=== PATIENT | female | born 1945 | race Caucasian/White ===

== ENCOUNTER 2021-05-26 13:36 | Emergency (ER) | payer MEDICARE, BC ==
[~2021-05-26] VITALS: Ht 154.9 cm; Wt 49.8 kg
--- OUTSIDE RECORDS SUMMARY | 2021-05-26 13:41 | XMS REPORT | Clinical Summary ---
Author Author [facility] Organization [facility] Address Unknown Phone Unavailable Care Team Providers Care Field Training Manager Name Role Phone Onesimo Platt MD Unavailable Unavailable Reinaldo Cobb MD PCP Javier Jeter MD 21 Source Comments Some departments are not documenting in the electronic medical record. If you d o not see the information that you expected, contact Release of Information in [facility] Information Management department at [phone] for further assistan ce in locating additional records.[facility] Allergies No Known Active Allergies Medications End Date Status Medication Sig Dispensed Refills Start Date Active amLODIPine (NORVASC) 10 Take 10 mg by 0 mg tablet mouth daily. Active olmesartan(+) (BENICAR) Take 20 mg by 0 20 mg tablet mouth daily. Active simvastatin (ZOCOR) 20 mg Take 20 mg by 0 tablet mouth at bedtime daily. Active levETIRAcetam (KEPPRA) Take one 30 tablet 11 750 mg tabletIndications: tablet by 9 partial epilepsy mouth at treatment adjunct, Take bedtime one tablet at bedtime daily. Indications: Additional Medication to Treat Partial Seizures, Take one tablet at bedtime Active FOLIC ACID PO Take by 0 mouth. Active levETIRAcetam (KEPPRA) TAKE 1 TABLET 90 tablet 3 0 500 mg tablet EVERY 1 MORNINGFOR ADDITIONAL MEDICATION TO TREAT PARTIAL SEIZURES Active Problems Problem Noted Date Cataract 07/13/2019 Vasogenic cerebral edema 10/15/2016 Compression of brain 10/15/2016 Meningioma 10/15/2016 Right-sided nontraumatic intracerebral hemorrhage HTN (hypertension) HLD (hyperlipidemia) Smoker Surgical History Surgery Date Site/Laterality Comments HYSTERECTOMY LITHOTRIPSY CRANIOTOMY right Right meningioma rese ction pterional craniotomy CRANIOTOMY 10/16/2016 Right RIGHT TEMPORAL CRANIOTOMY FOR RESECTION OF BRAIN TUMOR performed by Ángel Cline MD at [facility] Medical devices from this surgery are i n the Implants section. Medical History Medical History Date Comments HTN (hypertension) Pulmonary hypertension (HCC) per echo HLD (hyperlipidemia) Smoker Hypercholesteremia Meningioma (HCC) Family History Medical History Relation Name Comments SLE Daughter Glaucoma Father Cataract Mother Hypertension Mother Blindness Neg Hx Cancer Neg Hx Diabetes Neg Hx Macular Degen Neg Hx Retinal Detachment Neg Hx Stroke Neg Hx Thyroid Disease Neg Hx Relation Name Status Comments Daughter Father Mother Social History Date Tobacco Use Types Packs/Day Years Used Quit: 12/27/2018 Current Some Day Smoker Cigarettes Smokeless Tobacco: Current User Comments: 1-2 cigarettes a day Comments Alcohol Use Standard Drinks/Week Yes 0 (1 standard drink = 0.6 o z pure alcohol) Sex Assigned at Date Recorded Female 03/21/2020 12:47 PM CDT Last Filed Vital Signs Reading Time Taken Comments Vital Sign 129/69 03/22/2020 2:08 PM CDT Blood Pressure 87 03/22/2020 2:08 PM CDT Pulse 36.9 C (98.5 F) 03/22/2020 2:08 PM CDT Temperature 16 02/17/2017 10:01 AM CDT Respiratory Rate 87% 03/22/2020 2:08 PM CDT Oxygen Saturation - - Inhaled Oxygen Concentration 45.6 kg (100 lb 9.6 oz) 03/22/2020 2:08 PM CDT Weight 154.9 cm (5' 1") 03/22/2020 2:08 PM CDT Height 19.01 03/22/2020 2:08 PM CDT Body Mass Index Plan of Treatment Health Maintenance Due Date Last Done Comments MEDICARE ANNUAL WELLNESS 1945 VISIT DTAP/TDAP VACCINES (1 - 1962 Tdap) HEPATITIS C SCREENING 1962 PHYSICAL (COMPREHENSIVE) 1962 EXAM SHINGLES RECOMBINANT 1994 VACCINE (1 of 2) OSTEOPOROSIS 2009 SCREENING/MONITORING PNEUMONIA (PPSV23) 2009 VACCINE (1 of 1 - PPSV23) INFLUENZA VACCINE 07/05/2021 07/01/2016, 10/19/2009 Implants Device Identifier Shelf Expiration Date Model / Serial / L ot Implanted Type Area Manufactur er 11/04/2018 106 [id number] / [id number] / [id number] Substitute Tissue 3x3in Lyoplant Right: Cranial AESC ULAP Dura Sodium Hydroxide Onlay NEURO Implanted: Qty: 1 on 10/16/2016 by DIVISION Ángel Cline MD at [facility] [id number] / [id number] / [id number] Mesh Cranial .6mm Large Temporal Right: Cranial UNID ENTIFI Titanium Latex Free ED MFG Implanted: Qty: 1 on 10/16/2016 by Ángel Cline MD at [facility] [id number] / [id number] / [id number] Plate Bone 1.5mm Square Cranial Right: Cranial KLS M BASILIO Titanium 2x2 Hole Low CMF Implanted: Qty: 1 on 10/16/2016 by IMPLANTS Ángel lCine MD at [facility] [id number] / [id number] / [id number] Cover Aung Hole L17mm Od3mm Right: Cranial KLS JUN N Implanted: Qty: 1 on 10/16/2016 by CMÁngel Flores MD at [facility] [id number] / [id number] / [id number] Plate Bone .6mm Curve Cranial Right: Cranial KLS MAR TIN Titanium 5x2 Hole Low Profile CMF Implanted: Qty: 1 on 10/16/2016 by IMPLANTS Ángel Cline MD at [facility] [id number] / [id number] / [id number] Screw Neuro 1.5x4mm Drill Free Right: Cranial KLS MA RTIN Implanted: Qty: 15 on 10/16/2016 by Ángel Moore MD at [facility] Results Not on filefrom Last 3 Months Insurance Type Payer Benefit Subscriber ID Effective Phone Address Plan / Dates Group Medicare MEDICARE MEDICARE [id number] 2009-P PART A AND resent B PPO BCBS [place] BCBS [place] [id number] 2011- FED EMP Present PROGRAM [id number] Advance Directives Patient Jewel Gauger Explanation Type Date Recorded Advance 10/14/2016 3:01 PM Directive/DPOA Date Inactivated Comments Code Status Date Activated 10/19/2016 4:09 PM Full Code 10/14/2016 2:53 PM Provider has discussed Code Status No, more discussi on w/Patient or Family? needed
--- NOTE | 2021-05-26 13:44 | ED General ---
General Chief Complaint: Altered Mental Status Stated Complaint: AMS; SLURRED SPEECH Source of Information: Patient Exam Limitations: No Limitations History of Present Illness Date Seen by Provider: May 26, 2021 Time Seen by Provider: 13:44 Initial Comments 76-year-old female presents with complaint of several days of feeling "jittery". Also states her thinking has not been clear and she is been forgetful, although aware and still able to think for herself. Denies any recent illness, fever or chills. Denies chest pain, cough or shortness of air. Her daughters are very concerned and say that she is having altered mental status. Also her daughter says that she has been smoking more than usual and drinking more caffeine than usual. Recently started on Aricept by her PCP over the last week so she is only taking it a few days. History of benign brain tumor with resection 2 years ago, taking antiseizure medication since then and followed by neurologist. Allergies and Home Medications Allergies Coded Allergies: No Known Drug Allergies (Unverified , 05/26/21) Patient Home Medication List Home Medication List Reviewed: Yes Review of Systems Review of Systems Constitutional: No chills, No diaphoresis, No fever; malaise ("feeling jittery"); No weakness EENTM: no symptoms reported Respiratory: No cough, No short of breath Cardiovascular: No chest pain, No edema, No palpitations, No syncope, No other Gastrointestinal: No abdominal pain, No nausea, No vomiting Genitourinary: No dysuria, No frequency, No hematuria Musculoskeletal: No back pain, No joint pain, No neck pain Skin: No change in color, No rash Psychiatric/Neurological: Denies Headache, Denies Numbness, Denies Paresthesia, Denies Tingling, Denies Weakness Past Mihkcoz-Dbzlhf-Omjlak Hx Patient Social History Tobacco Use?: Yes Physical Exam Vital Signs Vital Signs - First Documented 05/26/21 13:45 Temp 36.4 Pulse 87 Resp 25 B/P (MAP) 122/57 (78) Pulse Ox 96 O2 Delivery Room Air Capillary Refill : Height, Weight, BMI Height: '" Weight: lbs. oz. 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 as Tested Skin: Normal Color, Warm/Dry Progress/Results/Core Measures Suspected Sepsis SIRS Temperature: Pulse: Respiratory Rate: Laboratory Tests 05/26/21 13:50: White Blood Count 4.8 Blood Pressure / Mean: Laboratory Tests 05/26/21 13:50: Creatinine 0.76, Platelet Count 403H, Total Bilirubin 0.3 Results/Orders Lab Results Laboratory Tests Test 05/26/21 13:46 05/26/21 13:50 Range/Units Urine Color YELLOW Urine Clarity CLEAR Urine pH 6.5 5-9 Urine Specific [place] 1.015 L 1.016-1.022 Urine Protein NEGATIVE NEGATIVE Urine Glucose (UA) NEGATIVE NEGATIVE Urine Ketones NEGATIVE NEGATIVE Urine Nitrite NEGATIVE NEGATIVE Urine Bilirubin 1+ H NEGATIVE Urine Urobilinogen 0.2 < = 1.0 MG/DL Urine Leukocyte Esterase NEGATIVE NEGATIVE Urine RBC (Auto) TRACE-I NEGATIVE Urine RBC 2-5 H /HPF Urine WBC NONE /HPF Urine Squamous Epithelial Cells 2-5 /HPF Urine Crystals NONE /LPF Urine Bacteria TRACE /HPF Urine Casts NONE /LPF Urine Mucus LARGE H /LPF Urine Yeast FEW H /HPF Urine Culture Indicated NO White Blood Count 4.8 4.3-11.0 10^3/uL Red Blood Count 4.45 3.80-5.11 10^6/uL Hemoglobin 12.6 11.5-16.0 g/dL Hematocrit 38 35-52 % Mean Corpuscular Volume 85 80-99 fL Mean Corpuscular Hemoglobin 28 25-34 pg Mean Corpuscular Hemoglobin Concent 34 32-36 g/dL Red Cell Distribution Width 13.9 10.0-14.5 % Platelet Count 403 H 130-400 10^3/uL Mean Platelet Volume 8.3 L 9.0-12.2 fL Immature Granulocyte % (Auto) 0 % Neutrophils (%) (Auto) 67 42-75 % Lymphocytes (%) (Auto) 22 12-44 % Monocytes (%) (Auto) 9 0-12 % Eosinophils (%) (Auto) 1 0-10 % Basophils (%) (Auto) 1 0-10 % Neutrophils # (Auto) 3.2 1.8-7.8 X 10^3 Lymphocytes # (Auto) 1.1 1.0-4.0 X 10^3 Monocytes # (Auto) 0.4 0.0-1.0 X 10^3 Eosinophils # (Auto) 0.0 0.0-0.3 10^3/uL Basophils # (Auto) 0.1 0.0-0.1 10^3/uL Immature Granulocyte # (Auto) 0.0 0.0-0.1 10^3/uL Sodium Level 133 L 135-145 MMOL/L Potassium Level 4.0 3.6-5.0 MMOL/L Chloride Level 96 L 98-107 MMOL/L Carbon Dioxide Level 24 21-32 MMOL/L Anion Gap 13 5-14 MMOL/L Blood Urea Nitrogen 7 7-18 MG/DL Creatinine 0.76 0.60-1.30 MG/DL Estimat Glomerular Filtration Rate 74 BUN/Creatinine Ratio 9 Glucose Level 151 H 70-105 MG/DL Calcium Level 9.4 8.5-10.1 MG/DL Corrected Calcium 8.5-10.1 MG/DL Total Bilirubin 0.3 0.1-1.0 MG/DL Aspartate Amino Transf (AST/SGOT) 21 5-34 U/L Alanine Aminotransferase (ALT/SGPT) 10 0-55 U/L Alkaline Phosphatase 89 40-136 U/L Total Protein 6.8 6.4-8.2 GM/DL Albumin 4.6 H 3.2-4.5 GM/DL My Orders Orders - ANTHONYVENSTINERONALD DO Ed Iv/Invasive Line Start (05/26/21 13:47) Cbc With Automated Diff (05/26/21 13:47) Comprehensive Metabolic Panel (05/26/21 13:47) Urinalysis (05/26/21 13:47) Ct Head Wo (05/26/21 13:52) Vital Signs/I&O 05/26/21 13:45 Temp 36.4 Pulse 87 Resp 25 B/P (MAP) 122/57 (78) Pulse Ox 96 O2 Delivery Room Air Capillary Refill : ECG Initial ECG Impression Date: May 26, 2021 Initial ECG Impression Time: 13:48 Initial ECG Rate: 80 Initial ECG Rhythm: Normal Sinus Initial ECG Intervals: Normal Initial ECG Impression: Normal Departure Impression Primary Impression: Mild dementia Disposition: 01 HOME, SELF-CARE Condition: Stable Departure-Patient Inst. Decision time for Depature: 14:34 Patient Instructions: Dementia ED Add. Discharge Instructions: Follow up with your RAD oncologist this week as planned. See your PCP in 2 weeks regarding how your feeling. Return to the ER for any other significant changes or concerns All discharge instructions reviewed with patient and/or family. Voiced understanding. RONALD CALDERON DO May 26, 2021 13:44
[2021-05-26 13:45] VITALS: BP 122/57
[2021-05-26 13:58] LABS: BASOPHILS # (AUTO) 0.1 10^3/uL (0.0-0.1); BASOPHILS % (AUTO) 1 % (0-10); EOSINOPHILS % (AUTO) 1 % (0-10); HEMATOCRIT 38 % (35-52); HEMOGLOBIN 12.6 g/dL (11.5-16.0); LYMPHOCYTES # (AUTO) 1.1 X 10^3 (1.0-4.0); LYMPHOCYTES % (AUTO) 22 % (12-44); MEAN CORPUSCULAR HEMOGLOBIN 28 pg (25-34); MEAN CORPUSCULAR HGB CONC 34 g/dL (32-36); MEAN CORPUSCULAR VOLUME 85 fL (80-99); MEAN PLATELET VOLUME 8.3 fL (9.0-12.2); MONOCYTES # (AUTO) 0.4 X 10^3 (0.0-1.0); MONOCYTES % (AUTO) 9 % (0-12); NEUTROPHILS # (AUTO) 3.2 X 10^3 (1.8-7.8); NEUTROPHILS % (AUTO) 67 % (42-75); PLATELET COUNT 403 10^3/uL (130-400); WHITE BLOOD COUNT 4.8 10^3/uL (4.3-11.0)
[2021-05-26 14:03] LABS: BILIRUBIN,URINE 1+ (NEGATIVE); CLARITY,URINE CLEAR; COLOR,URINE YELLOW; GLUCOSE, URINE (UA) NEGATIVE (NEGATIVE); KETONES,URINE NEGATIVE (NEGATIVE); NITRITE,URINE NEGATIVE (NEGATIVE); PH,URINE 6.5 (5-9); PROTEIN,URINE NEGATIVE (NEGATIVE)
[2021-05-26 14:04] LABS: BACTERIA,URINE TRACE /HPF; LEUKOCYTE ESTERASE ,URINE NEGATIVE (NEGATIVE); YEAST,URINE FEW /HPF
[2021-05-26 14:14] LABS: ALANINE AMINOTRANSFERASE 10 U/L (0-55); ALBUMIN 4.6 GM/DL (3.2-4.5); ALKALINE PHOSPHATASE 89 U/L (40-136); BILIRUBIN,TOTAL 0.3 MG/DL (0.1-1.0); BUN/CREATININE RATIO 9; CALCIUM 9.4 MG/DL (8.5-10.1); CARBON DIOXIDE 24 MMOL/L (21-32); CHLORIDE 96 MMOL/L (98-107); CREATININE SERUM 0.76 MG/DL (0.60-1.30); GFR ESTIMATED 74; GLUCOSE 151 MG/DL (70-105); SODIUM 133 MMOL/L (135-145); TOTAL PROTEIN 6.8 GM/DL (6.4-8.2)
--- NOTE | 2021-05-26 14:21 | Diagnostic Imaging Report ---
PROCEDURE: CT head without contrast. TECHNIQUE: Multiple contiguous axial images were obtained through the brain without the use of intravenous contrast. Auto Exposure Controls were utilized during the CT exam to meet ALARA standards for radiation dose reduction. INDICATION: Confusion, history of brain cancer. CORRELATION STUDY: None FINDINGS: Postoperative changes of right-sided craniotomy. There is a large area of encephalomalacia likely owing to prior surgical changes involving the right temporal and frontal parietal lobes. Slight ex vacuo dilatation of the right lateral ventricle. Otherwise generalized atrophic changes with prominence of ventricles and sulci. Scattered areas decreased attenuation likely owing to chronic small vessel ischemic disease. Definitive evidence for edema is not suggested. There is no midline shift. No intracranial hemorrhage. Generalized increased density in the intracranial vessels is present. Visualized paranasal sinuses are clear. IMPRESSION: 1. Findings compatible with rather sizable right-sided craniotomy with a large area of encephalomalacia of the right cerebral hemisphere, atrophic changes along with a likely small vessel ischemic disease is present. Definitive acute intracranial abnormality is not demonstrated. However, given no priors for comparison, if symptoms persist, short-term followup repeat imaging and/or MRI would be recommended. Dictated by: Dictated on workstation # [id number]
== END 2021-05-26 14:36 | disposition home or self-care (01) ==
LOC: ER FS 13:39
DX: F03.90 Unspecified dementia, unspecified severity, without behavioral disturbance, psychotic disturbance, mood disturbance, and anxiety (principal)
CPT/HCPCS: 36415; 70450; 80053; 81000; 85025; 93005

== ENCOUNTER → 2021-08-12 | Outpatient (CLI) | payer MEDICARE, BC ==
[2021-08-12 16:01] LABS: CLARITY,URINE SLIGHTLY CLOUDY; COLOR,URINE DARK YELLOW; PH,URINE 5.5 (5-9)
[2021-08-12 16:02] LABS: BILIRUBIN,URINE NEGATIVE (NEGATIVE); GLUCOSE, URINE (UA) NEGATIVE (NEGATIVE); KETONES,URINE TRACE (NEGATIVE); LEUKOCYTE ESTERASE ,URINE NEGATIVE (NEGATIVE); NITRITE,URINE NEGATIVE (NEGATIVE); PROTEIN,URINE NEGATIVE (NEGATIVE); SQUAMOUS EPITHELIAL CELL,UR 0-2 /HPF; WBC,URINE 0-2 /HPF
[2021-08-12 16:04] LABS: CALCIUM OXALATE CRYSTALS,UR MODERATE /LPF
[2021-08-12 16:34] LABS: BACTERIA,URINE NEGATIVE /HPF
== END ==
LOC: PVFS 14:15
PROVIDERS: ATTEND Pediatrics
DX: R82.998 Other abnormal findings in urine (principal)
CPT/HCPCS: 81000

== ENCOUNTER 2022-06-01 12:36 | Emergency (ER) | payer MEDICARE, BC ==
[~2022-06-01] VITALS: Ht 157.5 cm; Wt 49.9 kg
[2022-06-01 12:39] VITALS: BP 149/87
--- NOTE | 2022-06-01 12:56 | ED Hip Pain/Injury ---
General Chief Complaint: Hip/Pelvic Problems Stated Complaint: LT HIP PAIN Source: patient, family History of Present Illness Date Seen by Provider: Jun 01, 2022 Time Seen by Provider: 12:37 Initial Comments 77-year-old female presenting with family from [place]. She reports that she has had left posterior hip pain for about 5 days. The daughter states that she is getting 600 mg of ibuprofen twice a day. They also started her on Voltaren gel yesterday. She was seen in urgent care yesterday and did not have an x-ray. The nurse at [facility] told the family that she thought the patient really needed to have an x-ray and should come to the emergency department to get that done today. Patient states that she has not had any direct trauma or injury. She has had problems with sciatic nerve in the past. She reports that she does a lot of walking and walks her dog on uneven ground. She is not sure if that may be injured her hip per stress test. She denies any pain when she is just sitting but when she gets up and is walking she has 10 out of 10 pain. She was able to get up from the chair and climb up onto the exam table without any difficulty. She denies any loss of bowel or bladder control. Timing/Duration: constant (For the last 5 days) Severity: severe (When walking) Location: hip (L) Method of Injury: unknown Modifying Factors: Worse With Movement (Movement and walking makes the pain worse) Associated Symptoms: No fatigue, No fever, No groin pain, No insomnia, No lumps, No muscle aches, No pain radiating to knees, No trouble walking Allergies and Home Medications Allergies Coded Allergies: No Known Drug Allergies (Unverified , 05/26/21) Patient Home Medication List Home Medication List Reviewed: Yes Review of Systems Constitutional: No chills, No fever EENTM: no symptoms reported Respiratory: no symptoms reported Cardiovascular: no symptoms reported Gastrointestinal: no symptoms reported Genitourinary: no symptoms reported Musculoskeletal: see HPI Skin: No change in color Psychiatric/Neurological: Denies Numbness, Denies Paresthesia Past Ssrvtpk-Awqstk-Epzsgx Hx Patient Social History Tobacco Use?: No Use of E-Cig and/or Vaping dev: No Alcohol Use?: No Physical Exam Vital Signs Vital Signs - First Documented 06/01/22 12:39 Temp 36.3 Pulse 79 Resp 17 B/P (MAP) 149/87 (107) O2 Delivery Room Air Capillary Refill : Height, Weight, BMI Height: '" Weight: lbs. oz. 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 With no trauma x-rays are unlikely to show anything acute but the pelvis and hip x-ray were ordered to look for acute bony abnormality with her complaint of severe left hip pain with walking. Progress Note #2: Time: 13:09 Progress Note On my review of the three-view films of the pelvis and left hip there is no acute fracture or dislocation. She has some arthritic changes but nothing that seems to be worse than expected with age. Encourage pt to continue with anti-inf lammatory by mouth and topical. Check with Dr. Bonner in clinic if having continued pain/problems. Patient was noted to be able to climb up and down onto the exam table using step at end of table as well as walking to xray and back without difficulty. She does have kyphosis from age and osteoporosis of spine but does not seem to be having any difficulty ambulating to getting up from sitting position. While sitting and discussing results with the patient and family she even crossed her left leg over the right leg without wincing or any signs of pain. Diagnostic Imaging Diagonstic Imaging: Xray Plain Films/CT/US/NM/MRI: pelvis, hip Comments [facility] [place], [place] NAME: HANNA ODOM [facility] REC#: [id number] PT STATUS: DEP ER : 1945 PHYSICIAN: SUSAN MATA MD ADMIT DATE: 06/01/22/ER FS Draft Date of Exam:06/01/22 PELVIS WITH LEFT HIP 2-3 VIEW EXAMINATION: Left hip unilateral 2 or 3 views (w/pelvis when done) HISTORY: Left hip pain COMPARISON: None available. FINDINGS: There are no fractures or dislocations. Joint spaces appear maintained. Soft tissues unremarkable for acute abnormality. IMPRESSION: No acute osseous abnormality. If pain persists or patient cannot bear weight, MRI could evaluate for edema.. Dictated on workstation # [id number] Dict: 06/01/22 1313 Trans: 06/01/22 1320 [facility] [id number] Interpreted by: RAJINDER BHAKTA MD Electronically signed by: Reviewed: Reviewed by Me Departure Impression Primary Impression: Posterior pain of left hip Disposition: 01 HOME, SELF-CARE Condition: Stable Departure-Patient Inst. Decision time for Depature: 13:12 Referrals: SOFI BONNER MD (PCP) Primary Care Physician Patient Instructions: Hip Pain ED Add. Discharge Instructions: Continue taking the anti-inflammatory medicine by mouth and using the topical anti-inflammatory medicine to help with the left hip pain. If not improving or having more problems, check with Dr. Bonner for continued evaluation. You could add in Acetaminophen (Tylenol) 650 mg every 8 hours as needed for additional pain control if needed. All discharge instructions reviewed with patient and/or family. Voiced understanding. SUSAN MATA MD Jun 01, 2022 12:56
--- NOTE | 2022-06-01 13:21 | Diagnostic Imaging Report ---
EXAMINATION: Left hip unilateral 2 or 3 views (w/pelvis when done) HISTORY: Left hip pain COMPARISON: None available. FINDINGS: There are no fractures or dislocations. Joint spaces appear maintained. Soft tissues unremarkable for acute abnormality. IMPRESSION: No acute osseous abnormality. If pain persists or patient cannot bear weight, MRI could evaluate for edema.. Dictated by: Dictated on workstation # [id number]
== END 2022-06-01 13:20 | disposition home or self-care (01) ==
LOC: EDUNIT# 12:36 → ER FS 12:38
DX: M25.552 Pain in left hip (principal); M40.209 Unspecified kyphosis, site unspecified; M81.0 Age-related osteoporosis without current pathological fracture
CPT/HCPCS: 73502; 99281